=== PATIENT | female | born 1995 | race Caucasian/White ===

== ENCOUNTER 2023-06-07 16:16 | Emergency (ER) | payer OTHER, SELFPAY ==
[2023-06-07 16:28] VITALS: BP 181/118; BP 194/106; PULSE 103; PULSE 104; RESP 16; TEMP 36.4; O2SAT 96; O2SAT 98; BMI 44.8
[2023-06-07 16:35] LABS: Glucose, Whole Blood 172 mg/dL (60-115)
--- NOTE | 2023-06-07 16:49 | ED_ITS ---
HPI - General Adult General Chief complaint: Nausea/Vomiting/Diarrhea Stated complaint: VOMITING SINCE 6 AM,HTN,DIABETIC Time Seen by Provider: 06/07/23 16:35 Source: patient, RN notes reviewed and old records reviewed Mode of arrival: ambulatory Limitations: no limitations History of Present Illness HPI narrative: 27-year-old female with past medical history significant for diabetes, hypertension presents for evaluation of vomiting. She reports that his symptoms started this morning. Denies any sick contacts. She also endorses a headache with history of headache She received IV fluids and 4 mg Zofran via EMS EN route Denies any fevers, chills Denies any cough, shortness of breath, sore throat Denies any history abdominal surgeries Reports on Monday, 2 days ago she restarted Trulicity She has been on this medication the past without any issues She reports mild abdominal discomfort which she relates to her vomiting as this started after the nausea and vomiting, no severe or sharp localized abdominal pain Related Data Previous Rx's Medication Instructions Recorded ondansetron 4 mg disintegrating 4 mg PO Q8H PRN nausea and 06/07/23 tablet vomiting #20 tabs Allergies Allergy/AdvReac Type Severity Reaction Status Date / Time clonazepam [From Klonopin] AdvReac Anaphylaxis Verified 06/07/23 16:35 Review of Systems 2 Constitutional: Constitutional: Denies body ache(s), Denies chills, Denies fever(s) and Reports headache(s) Eyes: Eyes: Denies blurry vision ENT: Reports headache(s) Cardiovascular: Cardiovascular: Denies chest pain and Denies dyspnea Respiratory: Respiratory: Denies cough and Denies dyspnea Gastrointestinal: Gastrointestinal: Reports abdominal pain, Reports nausea and Reports vomiting Musculoskeletal: Musculoskeletal: Denies back pain Integumentary/Breasts: Skin/Breast: Denies rash Neurologic: Reports headache(s) PMF Social History Social History Smoked in Last 30 Days: Yes Use of substances other than those prescribed or required for medical reasons: No Advance Directives: No Advance Directives Information Provided: No Patient : No Physical Exam ED Vital Signs: Vital Signs - 24 hr 06/07/23 16:28 06/07/23 18:27 06/07/23 20:13 Temperature 97.6 F 98.7 F Pulse Rate 104 H 102 H 98 Respiratory Rate 16 18 12 Blood Pressure 194/106 H 155/91 H 157/88 H Pulse Oximetry 96 97 97 Oxygen Delivery Method Room Air Room Air Room Air BMI result Body Mass Index 44.8 Const General: healthy appearing, comfortable, no acute distress, alert and awake Nutritional Appearance: well nourished Orientation/consciousness: patient oriented x3 HENMT Head: Yes normocephalic and Yes atraumatic Eyes Eyelids: Yes eyelids normal Conjunctivae: conjunctivae normal Sclerae: sclerae normal Corneas: corneas normal Pupils: Equal, round and reactive pupils present EOM: EOMs intact bilaterally Neck Neck: Yes full ROM Resp Effort & Inspection: normal respiratory effort, able to speak in complete sentences and not labored GI Inspection: No distended Palpation (GI): Soft to palpation, not firm, nontender, no guarding and not rigid Skin General skin exam: elasticity normal Neuro General: patient oriented x3 Cranial nerves: Yes Equal, round and reactive pupils present and Yes Bilaterally intact EOM present Cognition (Neuro): normal cognition Extrem Other: Moving all extremities well without any obvious deformities Course Reevaluation(s) Reevaluation #1: Patient reports feeling much better, she passed a p.o. challenge and requested more fluid without any vomiting. She is stable for discharge at this time. Time: 20:14 Medications Administered Discontinued Medications Generic Name Dose Route Start Last Admin Trade Name Freq PRN Reason Stop Dose Admin Diphenhydramine HCl 12.5 mg 06/07/23 16:45 06/07/23 16:57 Diphenhydramine Hcl 50 Mg/Ml Vial IVPUSH 06/07/23 16:46 12.5 mg ONCE ONE Administration Sodium Chloride 1,000 mls @ 999 mls/hr 06/07/23 16:45 06/07/23 18:25 Ns IV 06/07/23 17:45 Infused .Q1H1M [facility] Infusion Ketorolac Tromethamine 15 mg 06/07/23 16:45 06/07/23 16:57 Ketorolac Tromethamine 15 Mg/Ml Vial IVPUSH 06/07/23 16:46 15 mg ONCE ONE Administration Metoclopramide HCl 10 mg 06/07/23 16:45 06/07/23 16:57 Metoclopramide Hcl 10 Mg/2 Ml Vial IVPUSH 06/07/23 16:46 10 mg ONCE ONE Administration Medical Decision Making Medical Decision Making MDM Narrative: 27-year-old female presents for evaluation of vomiting, headache. Possibly viral related, will check flu swab, she is noted be hypertensive. Will treat her discomfort with Toradol, Benadryl, Reglan and IV fluids. She reports that she is currently on a med to cycle so less likely will start ordered an HCG. Labs pending. The patient has no abdominal tenderness on exam. Further workup as indicated Differential Diagnosis Differential Diagnoses: The differential diagnosis associated with the presentation includes Viral syndrome Gastroenteritis Influenza RSV COVID-19 Pancreatitis Peptic ulcer disease Acute headache Lab Data MDM Lab Attestation statement: I reviewed the patient's lab results. No leukocytosis or anemia. No electrolyte abnormalities. Renal function within normal limits. Patient's glucose elevated to 175 without evidence of DKA. She has a very mild transaminitis of uncertain etiology possibly viral. Lipase just above normal at 105 but she has no epigastric abdominal pain currently. No tenderness on exam. Her bilirubin is within normal limits, less likely biliary obstruction 06/07/23 17:40 06/07/23 17:40 Labs: Lab Results 06/07/23 06/07/23 Range/Units 16:29 17:40 WBC 10.1 (4.8-10.8) X10*3/uL RBC 4.73 (4.20-5.50) X10*6/uL Hgb 14.3 (12.0-16.0) g/dl Hct 41.6 (37.0-47.0) % MCV 87.9 (80.0-98.0) fL MCH 30.2 (27.0-33.0) pg MCHC 34.4 (31.0-35.0) g/dl RDW 11.9 (11.0-16.0) % Plt Count 286 (160-400) X10*3/uL MPV 11.3 (9.4-12.3) fL Immature Gran % (Auto) 1.2 H (0.0-0.4) % Neut % (Auto) 62.6 (45-73) % Lymph % (Auto) 27.2 (20-40) % [place] % (Auto) 5.1 (2-11) % Eos % (Auto) 3.5 (0-4) % Baso % (Auto) 0.4 (0-2) % Lymph # (Auto) 2.8 (1.2-4.9) X10*3/uL [place] # (Auto) 0.5 (0.1-1.2) X10*3/uL Eos # (Auto) 0.4 (0.0-0.4) X10*3/uL Baso # (Auto) 0.0 (0.0-0.2) X10*3/uL Abs Immat Gran (auto) 0.12 H (0.00-0.03) X10*3/uL Absolute Neuts (auto) 6.4 (2.0-8.3) x10*3/uL Absolute Nucleated RBC 0.000 (0.0-0.012) X10*3/uL Nucleated RBC % (auto) 0.0 (0.0-0.2) /100WBC Sodium 138 (135-145) mmol/L Potassium 3.9 (3.3-5.1) mmol/L Chloride 106 (96-108) mmol/L Carbon Dioxide 25 (22-29) mmol/L Anion Gap 11 L (12-20) BUN 9 (9-16) mg/dL Creatinine 0.61 (0.5-1.4) mg/dL Estim Creat Clear Calc 199.1 Estimated GFR > 60 POC Glucose 172 H (60-115) mg/dL Random Glucose 175 H (60-115) mg/dL Calcium 9.3 (8.4-10.2) mg/dL Total Bilirubin 0.7 (0.0-1.0) mg/dL AST 74 H (5-31) U/L ALT 74 H (0-31) U/L Alkaline Phosphatase 58 (39-117) U/L Total Protein 7.7 (6.5-8.0) g/dL Albumin 3.8 (3.5-5.0) g/dL Lipase 105 H (8-78) U/L Influenza Type A (PCR) NEGATIVE (Negative) Influenza Type B (PCR) NEGATIVE (Negative) RSV RNA Qual (PCR) NEGATIVE (Negative) SARS-CoV-2 RNA (RT-PCR) NEGATIVE (Negative) Discharge Plan Discharge Clinical Impression: Abdominal pain, Vomiting Patient Disposition: Home, Self-Care Instructions: Acute Nausea and Vomiting (ED) Additional Instructions: Your workup in the emergency department today was reassuring. Your liver enzymes were slightly elevated today. This could be related to a stomach virus I do recommend you have repeat labs in approximately 2 weeks with your primary doctor Use Zofran for nausea/vomiting Return for new or worsening some Prescriptions: New ondansetron 4 mg tablet,disintegrating 4 mg PO Q8H PRN (Reason: nausea and vomiting) Qty: 20 0RF
[2023-06-07] MEDS: 0.9 % Sodium Chloride 1,000 ML 999 ML IV (16:57)
[2023-06-07] MEDS: diphenhydrAMINE HCL 50 MG/ML VIAL 12.5 MG IVPUSH (16:57)
[2023-06-07] MEDS: Ketorolac Tromethamine 15 MG/ML VIAL IVPUSH (16:57)
[2023-06-07] MEDS: Metoclopramide HCl 10 MG/2 ML VIAL IVPUSH (16:57)
[2023-06-07 17:52] LABS: MANUAL DIFF FLAG NO
[2023-06-07 18:13] LABS: Alanine Aminotransferase 74 U/L (0-31); Albumin Level 3.8 g/dL (3.5-5.0); Alkaline Phosphatase 58 U/L (39-117); Anion Gap 11 (12-20); Aspartate Amino Transferase 74 U/L (5-31); Bilirubin Total 0.7 mg/dL (0.0-1.0); Blood Urea Nitrogen 9 mg/dL (9-16); Calcium 9.3 mg/dL (8.4-10.2); Carbon Dioxide 25 mmol/L (22-29); Chloride 106 mmol/L (96-108); Creatinine Clr Calc Pharmacy 199.1; Estimated Glomerular Filt Rate > 60; Glucose Random 175 mg/dL (60-115); Lipase 105 U/L (8-78); Potassium 3.9 mmol/L (3.3-5.1); Sodium 138 mmol/L (135-145); Total Protein 7.7 g/dL (6.5-8.0)
[2023-06-07 18:14] LABS: Basophils Percent Auto 0.4 % (0-2); Eosinophils Absolute Auto 0.4 X10*3/uL (0.0-0.4); Eosinophils Percent Auto 3.5 % (0-4); Hematocrit 41.6 % (37.0-47.0); Hemoglobin 14.3 g/dl (12.0-16.0); Imm Gran Abs Auto 0.12 X10*3/uL (0.00-0.03); Imm Gran Pct Auto 1.2 % (0.0-0.4); Lymphocytes Absolute Auto 2.8 X10*3/uL (1.2-4.9); Lymphocytes Percent Auto 27.2 % (20-40); Mean Corpuscular HGB Conc 34.4 g/dl (31.0-35.0); Mean Corpuscular Hemoglobin 30.2 pg (27.0-33.0); Mean Corpuscular Volume 87.9 fL (80.0-98.0); Mean Platelet Volume 11.3 fL (9.4-12.3); Monocytes Absolute Auto 0.5 X10*3/uL (0.1-1.2); Monocytes Percent Auto 5.1 % (2-11); Neutrophils Absolute Auto 6.4 x10*3/uL (2.0-8.3); Neutrophils Percent Auto 62.6 % (45-73); Platelet Count 286 X10*3/uL (160-400); Red Blood Count 4.73 X10*6/uL (4.20-5.50); Red Cell Distribution Width 11.9 % (11.0-16.0); White Blood Count 10.1 X10*3/uL (4.8-10.8)
[2023-06-07 18:27] VITALS: BP 155/91; PULSE 102; RESP 18; O2SAT 97
[2023-06-07 18:34] LABS: Influenza A PCR NEGATIVE (Negative); Influenza B PCR NEGATIVE (Negative); Resp Syncy Virus RNA Qual PCR NEGATIVE (Negative); SARS COV2 PCR INHOUSE NEGATIVE (Negative)
[2023-06-07 20:13] VITALS: BP 157/88; PULSE 98; RESP 12; TEMP 37.1; O2SAT 97
--- NOTE | 2023-06-07 20:14 | PC.NURSE ---
Pt aox4 resting at the bedside. Food and water provided. Pt able to tolerate with no N/V. Reports headache, 3/10. MLP at bedside.
== END 2023-06-07 20:29 | disposition home or self-care (01) ==
PROVIDERS: Physician Assistant; Emergency Provider Student in an Organized Health Care Education/Training Program; PCP Internal Medicine
DX: R11.2 Nausea with vomiting, unspecified (principal); R51.9 Headache, unspecified; E11.9 Type 2 diabetes mellitus without complications; I10 Essential (primary) hypertension; Z79.899 Other long term (current) drug therapy; Z20.822 Contact with and (suspected) exposure to COVID-19; Z20.828 Contact with and (suspected) exposure to other viral communicable diseases; Z79.4 Long term (current) use of insulin
CPT/HCPCS: 0241U; 80053; 82947; 83690; 85025; 96361; 96374; 96375; 99284; 99285; J1200; J1885; J2765

== ENCOUNTER 2023-11-28 16:20 | Emergency (ER) | payer OTHER, SELFPAY ==
[2023-11-28 16:34] VITALS: BP 186/110; PULSE 90; O2SAT 98
[2023-11-28 17:40] VITALS: BP 179/103; PULSE 89; RESP 18; TEMP 36.7; O2SAT 98; BMI 44.2
--- NOTE | 2023-11-28 17:43 | ED.GENADULT ---
HPI - General Adult General Chief complaint: Abdominal Pain Stated complaint: Upper ABD pain, burning sensation, slight tenderne Related Data Previous Rx's ?Medication ?Instructions ?Recorded ondansetron 4 mg disintegrating 4 mg PO Q8H PRN nausea and 06/07/23 tablet vomiting #20 tabs Allergies Allergy/AdvReac Type Severity Reaction Status Date / Time clonazepam [From Klonopin] AdvReac Anaphylaxis Verified 11/28/23 17:43 [facility] Social History Social History Advance Directives: No Advance Directives Information Provided: No Do you have a plan to hurt others: No Plan Physical Exam ED Vital Signs: BMI result Body Mass Index 44.2 Course Course Course Narrative: This is a Rapid Medical Examination (RME) performed by Salena Christopher PA-C in triage. Full HPI, ROS, assessment and treatment plan per primary provider in the Main ED. 28 yo female hx of GERD here for eval of constant epigastric abdominal pain radiating to RUQ along with nausea X1 day. reports nausea before onset of abdominal pain. Reports multiple episodes of diarrhea since yesterday. History of . No other abdominal surgeries. Admits to possible chance of . Patient hypertensive in triage. she takes labetolol BID. took her first dose this morning. obese abdomen, ND. slightly TTP of epigastric region. negative lopez sign. Plan: labs, UA, u preg ordered. Reevaluation(s) Reevaluation #1: Patient left the ED without completing treatment. Medical Decision Making Lab Data 11/28/23 18:01 11/28/23 18:01 Labs: Lab Results 11/28/23 11/28/23 Range/Units 18:01 18:02 WBC 11.7 H (4.8-10.8) X10*3/uL RBC 4.75 (4.20-5.50) X10*6/uL Hgb 14.5 (12.0-16.0) g/dl Hct 41.1 (37.0-47.0) % MCV 86.5 (80.0-98.0) fL MCH 30.5 (27.0-33.0) pg MCHC 35.3 H (31.0-35.0) g/dl RDW 12.0 (11.0-16.0) % Plt Count 280 (160-400) X10*3/uL MPV 11.0 (9.4-12.3) fL Immature Gran % (Auto) 0.3 (0.0-0.4) % Neut % (Auto) 52.6 (45-73) % Lymph % (Auto) 38.2 (20-40) % [place] % (Auto) 4.9 (2-11) % Eos % (Auto) 3.4 (0-4) % Baso % (Auto) 0.6 (0-2) % Lymph # (Auto) 4.5 (1.2-4.9) X10*3/uL [place] # (Auto) 0.6 (0.1-1.2) X10*3/uL Eos # (Auto) 0.4 (0.0-0.4) X10*3/uL Baso # (Auto) 0.1 (0.0-0.2) X10*3/uL Abs Immat Gran (auto) 0.04 H (0.00-0.03) X10*3/uL Absolute Neuts (auto) 6.1 (2.0-8.3) x10*3/uL Absolute Nucleated RBC 0.000 (0.0-0.012) X10*3/uL Nucleated RBC % (auto) 0.0 (0.0-0.2) /100WBC Sodium 140 (135-145) mmol/L Potassium 3.9 (3.3-5.1) mmol/L Chloride 106 (96-108) mmol/L Carbon Dioxide 26 (22-29) mmol/L Anion Gap 12 (12-20) BUN 9 (9-16) mg/dL Creatinine 0.66 (0.5-1.4) mg/dL Estim Creat Clear Calc 180.9 Estimated GFR > 60 Random Glucose 130 H (60-115) mg/dL Calcium 9.7 (8.4-10.2) mg/dL Magnesium 1.8 (1.6-2.6) mg/dL Total Bilirubin 0.5 (0.0-1.0) mg/dL AST 43 H (5-31) U/L ALT 58 H (0-31) U/L Alkaline Phosphatase 58 (39-117) U/L Total Protein 7.8 (6.5-8.0) g/dL Albumin 4.1 (3.5-5.0) g/dL Lipase 24 (8-78) U/L Urine Color Yellow Urine Appearance Clear Urine pH 5.5 (5.0-9.0) Ur Specific [place] 1.010 (1.005-1.025) Urine Protein 100 (2+) H (Neg-Trace) mg/dL Urine Glucose (UA) Negative (Negative) mg/dL Urine Ketones Negative (Negative) mg/dL Urine Blood Negative (Negative) Urine Nitrite Negative (Negative) Ur Leukocyte Esterase Negative (Negative) Urine RBC 0-2 (0-2) /HPF Urine WBC 0-5 (0-5) /HPF Ur Squamous Epith Cells 6-10 (0-2) /HPF Urine Bacteria None Seen (None Seen) Hyaline Casts 0-2 (0-2) /LPF Urine Test NEGATIVE (NEGATIVE) Influenza Type A (PCR) NEGATIVE (Negative) Influenza Type B (PCR) NEGATIVE (Negative) RSV RNA Qual (PCR) NEGATIVE (Negative) SARS-CoV-2 RNA (RT-PCR) NEGATIVE (Negative) Discharge Plan Discharge Clinical Impression: Abdominal pain Patient Disposition: Left W/O Completing Treatment Prescriptions: No Action ondansetron 4 mg tablet,disintegrating 4 mg PO Q8H PRN (Reason: nausea and vomiting) Qty: 20 0RF Discharge Date/Time: 11/28/23 22:07
[2023-11-28 18:08] LABS: MANUAL DIFF FLAG NO
[2023-11-28 18:15] LABS: Appearance Urine Clear; Color Urine Yellow; Glucose Urine UA Negative (Negative); Leukocyte Esterase Urine Negative (Negative); Nitrite Urine Negative (Negative); PH 5.5 (5.0-9.0); UMIC TRIGGER UACC YES; Urine Blood Negative (Negative); Urine Ketones Negative (Negative); Urine Protein 100 (2+) mg/dL (Neg-Trace)
[2023-11-28 18:18] LABS: UPreg QC Valid YES; Urine Pregnancy NEGATIVE (NEGATIVE)
[2023-11-28 18:20] LABS: Bacteria Urine None Seen (None Seen); Hyaline Casts Urine 0-2 /LPF (0-2); RBC Urine 0-2 /HPF (0-2); WBC Urine 0-5 /HPF (0-5)
[2023-11-28 18:23] LABS: Alanine Aminotransferase 58 U/L (0-31); Albumin Level 4.1 g/dL (3.5-5.0); Alkaline Phosphatase 58 U/L (39-117); Anion Gap 12 (12-20); Aspartate Amino Transferase 43 U/L (5-31); Basophils Absolute Auto 0.1 X10*3/uL (0.0-0.2); Basophils Percent Auto 0.6 % (0-2); Bilirubin Total 0.5 mg/dL (0.0-1.0); Blood Urea Nitrogen 9 mg/dL (9-16); Calcium 9.7 mg/dL (8.4-10.2); Carbon Dioxide 26 mmol/L (22-29); Chloride 106 mmol/L (96-108); Creatinine Clr Calc Pharmacy 180.9; Eosinophils Absolute Auto 0.4 X10*3/uL (0.0-0.4); Eosinophils Percent Auto 3.4 % (0-4); Estimated Glomerular Filt Rate > 60; Glucose Random 130 mg/dL (60-115); Hematocrit 41.1 % (37.0-47.0); Hemoglobin 14.5 g/dl (12.0-16.0); Imm Gran Abs Auto 0.04 X10*3/uL (0.00-0.03); Imm Gran Pct Auto 0.3 % (0.0-0.4); Lipase 24 U/L (8-78); Lymphocytes Absolute Auto 4.5 X10*3/uL (1.2-4.9); Lymphocytes Percent Auto 38.2 % (20-40); Magnesium 1.8 mg/dL (1.6-2.6); Mean Corpuscular HGB Conc 35.3 g/dl (31.0-35.0); Mean Corpuscular Hemoglobin 30.5 pg (27.0-33.0); Mean Corpuscular Volume 86.5 fL (80.0-98.0); Monocytes Absolute Auto 0.6 X10*3/uL (0.1-1.2); Monocytes Percent Auto 4.9 % (2-11); Neutrophils Absolute Auto 6.1 x10*3/uL (2.0-8.3); Neutrophils Percent Auto 52.6 % (45-73); Platelet Count 280 X10*3/uL (160-400); Potassium 3.9 mmol/L (3.3-5.1); Red Blood Count 4.75 X10*6/uL (4.20-5.50); Sodium 140 mmol/L (135-145); Total Protein 7.8 g/dL (6.5-8.0); White Blood Count 11.7 X10*3/uL (4.8-10.8)
[2023-11-28 18:57] LABS: Influenza A PCR NEGATIVE (Negative); Influenza B PCR NEGATIVE (Negative); Resp Syncy Virus RNA Qual PCR NEGATIVE (Negative); SARS COV2 PCR INHOUSE NEGATIVE (Negative)
--- NOTE | 2023-11-28 22:07 | PC.NURSE ---
per chrt comment, pt left at [phone]
== END 2023-11-28 22:07 | disposition left against medical advice (07) ==
PROVIDERS: Physician Assistant Medical; Emergency Provider Emergency Medicine; PCP Internal Medicine
DX: R10.10 Upper abdominal pain, unspecified (principal); Z03.818 Encounter for observation for suspected exposure to other biological agents ruled out; Z79.899 Other long term (current) drug therapy
CPT/HCPCS: 0241U; 36415; 80053; 81001; 81025; 83690; 83735; 85025; 99282; 99283

== ENCOUNTER 2024-01-08 20:39 | Emergency (ER) | payer OTHER, SELFPAY ==
--- NOTE | ~2024-01-08 | US_ITS ---
EXAMINATION: US PELVIS CLINICAL INFORMATION: Heavy menstrual bleeding and pain. COMPARISON: None available. TECHNIQUE: Ultrasound of the pelvis is performed using both transabdominal and transvaginal transducers along with Doppler. Transvaginal imaging is performed due to inadequate visualization transabdominally. FINDINGS: Uterus: The uterus is anteverted and measures 8.9 x 4.1 x 4.4 cm. The double wall endometrial thickness is 8 mm. The uterus is smooth in contour and has normal myometrial echogenicity. No visible fibroid. Nabothian cysts at the cervix. Adnexa: Both ovaries are visualized. There is normal color flow to the adnexa. There is no ovarian torsion. There is no pelvic ascites or fluid collection. Right ovary measures 3.3 x 2 x 2.1 cm. 7.3 mL Left ovary measures 3.7 x 2.6 x 2.1 cm. 10.6 mL US/US pelvic and transvaginal IMPRESSION: Normal ultrasound of pelvis.
[2024-01-08 20:44] VITALS: BP 180/100; PULSE 118; O2SAT 98
[2024-01-08 20:45] VITALS: BP 209/121; PULSE 100; RESP 18; TEMP 37.1; O2SAT 98; BMI 43.0
--- NOTE | 2024-01-08 20:45 | ED.ABDPAIN ---
HPI - Abdominal Pain General Chief Complaint: General Medical Stated Complaint: abd pain with menstruation, cramps and burning Time Seen by Provider: 01/08/24 21:14 Source: patient and EMS Mode of arrival: EMS Limitations: no limitations History of Present Illness HPI narrative: Patient is a 28-year-old female presents to the emergency department for evaluation of heavy menstrual bleeding. She states that she began having vaginal bleeding yesterday evening. As today has progressed she has been soaking through 1 pad per hour reportedly passing large clots. She states her menses have not typically been this heavy in the past. She admits to having lower abdominal cramping/pain. She has been experiencing dysuria and urinary frequency. She states that she was also having some mild itching of the vaginal region recently which she typically experiences with a yeast infection. She reports she is unaware whether she may be or not, last menstrual period was approximately 2 months ago, states it is typical for her menses to be irregular. She also had a single episode of vomiting earlier today, which she states is not atypical during her menses. Additionally, she admits to having some shortness of breath, she states she was treated in an emergency department in [place] yesterday for an asthma exacerbation, she was given prednisone 60 mg orally. She is requesting her albuterol inhaler at this time. Related Data Previous Rx's ?Medication ?Instructions ?Recorded ondansetron 4 mg disintegrating 4 mg PO Q8H PRN nausea and 06/07/23 tablet vomiting #20 tabs cefuroxime axetil 250 mg tablet 250 mg PO BID #13 tabs 01/09/24 Allergies Allergy/AdvReac Type Severity Reaction Status Date / Time clonazepam [From Klonopin] AdvReac Anaphylaxis Verified 01/08/24 20:49 Review of Systems Review of Systems Yes all other systems are reviewed and are negative PMFSH Past Medical History Attestation statement: The following information was validated with the patient. Source: old records reviewed Social History Social History Smoked in Last 30 Days: Yes Use of substances other than those prescribed or required for medical reasons: No Advance Directives: No Advance Directives Information Provided: No Do you have a plan to hurt others: No Plan Physical Exam ED Vital Signs: Vital Signs - 24 hr 01/08/24 20:45 01/08/24 23:07 01/09/24 00:04 Temperature 98.8 F 98.5 F Pulse Rate 100 98 105 H Respiratory Rate 18 20 18 Blood Pressure 209/121 H 200/109 H 181/108 H Pulse Oximetry 98 93 95 Oxygen Delivery Method Room Air Room Air Room Air 01/09/24 00:16 Temperature 98.9 F Pulse Rate 105 H Respiratory Rate 18 Blood Pressure 181/108 H Pulse Oximetry 95 Oxygen Delivery Method Room Air BMI result Body Mass Index 43.0 Appearance: Alert.?Oriented to person, place and time. No acute distress.?Normal affect. Eyes: Pupils equal, round and reactive to light.? ENT: Pharynx normal.?? Neck: Normal inspection.? Neck supple.?? CVS: Heart sounds normal. Normal heart rate and rhythm.? Pulses normal.?? Respiratory: No respiratory distress.? Lung sounds clear to auscultation bilaterally?? Abdomen: Soft and non-tender. Normoactive bowel sounds. No pulsatile mass.?? Genitourinary:? Supervised by ED infectious disease technician Ivory. Normal external appearance of urethra.? No lesions/lacerations or discharge or tenderness noted. No Bartholin cyst noted.? Speculum exam: normal appearance/palpation of vagina normal. No abnormal vaginal discharge, swelling, erythema, laceratons. Positive bleeding in the vaginal vault without clots. ?No foreign bodies noted.? No vaginal tenderness noted.? Normal appearance of cervix. Normal palpation of cervix.? Cervical os is closed.? Active bleeding from the cervical os is noted noted.? No cervical lesion/mass.?? No cervical motion tenderness noted.? Negative chandelier sign.? Normal bimanual exam.? Uterine size normal. Uterine consistency normal.? Bladder normal to palpation. Normal adnexa. Normal rectovaginal exam. Skin: Skin warm and dry.? Normal skin color.? Extremities: No lower extremity edema.? Neuro: Moves all extremities spontaneously. Sensation intact bilaterally. Ambulates with normal steady gait. Course Course Course Narrative: This is an RME: Additional HPI, ROS, PE not included below will be deferred to primary provider. RME assessment and note performed by: Amada Nathan PA-C This is a [id number]-female who presents to the ER with a complaints of abnormal uterine bleeding since yesterday. Reports she is soaking through 1 pad per hour. Reports that she is passing blood clots, never had a menses as heavy or painful before. Unsure of . HX of abnormal menses in the past > did not have menses last month which is typical of her. She has nausea, and vomiting once. Endorsing some dizziness. Plan: Labs, UA, EKG Medical Decision Making Medical Decision Making [facility] Narrative: Patient is a 28-year-old female with past medical history hypertension, diabetes, asthma who presents emergency department for evaluation of heavy menstrual bleeding as per HPI. Overall she appears well, no distress, ambulatory with a steady gait. Her abdominal examination is benign, has no tenderness upon palpation no rigidity or guarding, no rebound tenderness. No flank tenderness. Examination appears less consistent with PID. She denies concern for sexually transmitted infections, would not consider prophylactic treatment at this time. Urinalysis reveals hematuria, positive nitrites, 1+ urine bacteria. She is symptomatic with dysuria and urinary frequency, would treat as urinary tract infection at this time, although we did discuss that menstrual bleeding can sometimes skew these results. She was given her first dose of Ceftin in the emergency department remainder prescription was sent to her pharmacy. HCG is negative. Testing for bacterial vaginosis panel in addition to chlamydia and gonorrhea were sent to the pharmacy. Pelvic ultrasound was without acute abnormality. Her blood counts are stable, no anemia, electrolytes overall unremarkable, no MIRANDA, LFTs overall unremarkable. She is also noted to have asymptomatic hypertension, which upon review of her records has been seen in the past as well, she admits to compliance with her antihypertensives. States it has been sometime since she followed up with her primary care doctor for evaluation of this. She denies chest pain, shortness of breath, dizziness, lightheadedness, vision changes, neck pain, numbness or tingling of her extremities. Differential Diagnosis Differential Diagnoses: The differential diagnosis associated with the presentation includes (See narrative above) Admission/Observation Consideration of admission/observation: Escalation of care including admission/observation considered (See narrative above) Lab Data [facility] Lab Attestation statement: I reviewed the patient's lab results. (See narrative above) 01/08/24 21:12 01/08/24 21:12 Labs: Lab Results 01/08/24 01/08/24 Range/Units 21:12 21:26 WBC 12.5 H (4.8-10.8) X10*3/uL RBC 4.36 (4.20-5.50) X10*6/uL Hgb 13.2 (12.0-16.0) g/dl Hct 38.1 (37.0-47.0) % MCV 87.4 (80.0-98.0) fL MCH 30.3 (27.0-33.0) pg MCHC 34.6 (31.0-35.0) g/dl RDW 12.4 (11.0-16.0) % Plt Count 338 (160-400) X10*3/uL MPV 10.2 (9.4-12.3) fL Immature Gran % (Auto) 0.4 (0.0-0.4) % Neut % (Auto) 58.0 (45-73) % Lymph % (Auto) 33.9 (20-40) % [place] % (Auto) 5.8 (2-11) % Eos % (Auto) 1.5 (0-4) % Baso % (Auto) 0.4 (0-2) % Lymph # (Auto) 4.2 (1.2-4.9) X10*3/uL [place] # (Auto) 0.7 (0.1-1.2) X10*3/uL Eos # (Auto) 0.2 (0.0-0.4) X10*3/uL Baso # (Auto) 0.1 (0.0-0.2) X10*3/uL Abs Immat Gran (auto) 0.05 H (0.00-0.03) X10*3/uL Absolute Neuts (auto) 7.2 (2.0-8.3) x10*3/uL Absolute Nucleated RBC 0.000 (0.0-0.012) X10*3/uL Nucleated RBC % (auto) 0.0 (0.0-0.2) /100WBC Sodium 139 (135-145) mmol/L Potassium 3.4 (3.3-5.1) mmol/L Chloride 109 H (96-108) mmol/L Carbon Dioxide 22 (22-29) mmol/L Anion Gap 11 L (12-20) BUN 11 (9-16) mg/dL Creatinine 0.78 (0.5-1.4) mg/dL Estim Creat Clear Calc 150.6 Estimated GFR > 60 Random Glucose 148 H (60-115) mg/dL Calcium 9.4 (8.4-10.2) mg/dL Magnesium 2.0 (1.6-2.6) mg/dL Total Bilirubin 0.4 (0.0-1.0) mg/dL Direct Bilirubin 0.1 (0.0-0.5) mg/dL AST 23 (5-31) U/L ALT 38 H (0-31) U/L Alkaline Phosphatase 57 (39-117) U/L Total Protein 7.6 (6.5-8.0) g/dL Albumin 4.1 (3.5-5.0) g/dL Lipase 26 (8-78) U/L Beta HCG, Quant < 2 mIU/mL Urine Color RED Urine Appearance Turbid Urine pH 5.0 (5.0-9.0) Ur Specific [place] 1.025 (1.005-1.025) Urine Protein 300 (3+) H (Neg-Trace) mg/dL Urine Glucose (UA) 100 H (Negative) mg/dL Urine Ketones 15 (Negative) mg/dL Urine Blood Large (3+) H (Negative) Urine Nitrite Positive H (Negative) Ur Leukocyte Esterase Moderate (2+) H (Negative) Urine RBC >20 H (0-2) /HPF Urine WBC 0-5 (0-5) /HPF Ur Squamous Epith Cells 0-2 (0-2) /HPF Urine Bacteria 1+ (None Seen) Hyaline Casts 0-2 (0-2) /LPF Urine Test NEGATIVE (NEGATIVE) Independent Interpretation I performed an independent interpretation of an: EKG Interpretation: Rate: 100 Rhythm:? Normal sinus rhythm Normal P waves.? Normal SHARON.?? Normal QRS complex.?? ST T wave :??No ST elevation, no ST depression qTC:[id number] The study has been interpreted contemporaneously by me. Radiology Impression Discussion of test interpretation with radiology: I have reviewed the radiologist's reading. Radiologist Impression: US/US pelvic and transvaginal IMPRESSION: Normal ultrasound of pelvis. Independent Historian Clinical information obtained from an independent historian. History obtained from or confirmed by: EMS Prescription Management I considered prescription management with: Antibiotic Chronic Conditions Patient?s care impacted by: Diabetes and Hypertension Medications Administered Discontinued Medications Generic Name Dose Route Start Last Admin Trade Name Freq PRN Reason Stop Dose Admin Albuterol Sulfate 2 puff 01/08/24 23:59 01/09/24 00:08 Albuterol Sulfate 90 Mcg 8 Gm Inhaler INHALE 01/09/24 00:00 2 puff ONCE ONE Administration Cefuroxime Axetil 250 mg 01/08/24 23:16 01/09/24 00:06 Cefuroxime Axetil 250 Mg Tablet PO 01/08/24 23:17 250 mg ONCE ONE Administration Ondansetron HCl 4 mg 01/08/24 23:59 01/09/24 00:06 Ondansetron Odt 4 Mg Tab.Rapdis TRANSLINGU 01/09/24 00:00 4 mg ONCE ONE Administration Discharge Plan Discharge Clinical Impression: DUB (dysfunctional uterine bleeding), Urinary tract infection Patient Disposition: Home, Self-Care Instructions: Dysfunctional Uterine Bleeding (ED), Urinary Tract Infection in Women (ED) Additional Instructions: As discussed, continue taking your medications as prescribed. 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 Your blood counts were normal today. The ultrasound of your pelvis was also normal did not show any abnormal findings to suggest a cause for your heavy bleeding. Your urine test today was concerning for a possible infection versus contamination, you reported having burning with urination and urinary frequency, at this time you are being treated for urinary tract infection. If these symptoms continue after her menses subside and you complete the course of antibiotics please follow-up closely with your doctor. You may return back to emergency department any new or worsening symptoms or concerns. Prescriptions: New cefuroxime axetil 250 mg tablet 250 mg PO BID Qty: 13 0RF No Action ondansetron 4 mg tablet,disintegrating 4 mg PO Q8H PRN (Reason: nausea and vomiting) Qty: 20 0RF Referrals: Jamia Berry MD [Primary Care Provider] - Stand Alone Forms: Work/School Release Interventions: ED Discharge Assessment Last Done: 01/09/24 00:16 Discharge Date/Time: 01/09/24 00:16 Print Language: Bengali
--- NOTE | 2024-01-08 20:48 | ECG_ITS ---
Test Reason : DIZINESS Blood Pressure : / mmHG Vent. Rate : 100 BPM Atrial Rate : 100 BPM P-R Int : 152 ms QRS Dur : 106 ms QT Int : 362 ms P-R-T Axes : 044 041 019 degrees QTc Int : 466 ms Normal sinus rhythm Normal ECG No previous ECGs available Referred By: Amada Nathan Electronically Signed By:SAMIRA SANTOS
[2024-01-08 21:18] LABS: MANUAL DIFF FLAG NO
--- NOTE | 2024-01-08 21:18 | PC.NURSE ---
pt a&ox4, respirations even and unlabored and ambulatory. pt reporting onset of lower abdominal cramping and period starting yesterday. pt reports heavy flow; changing 2 large pads every hour, and heavy blood clots. pt reports she is unsure if she is preganant as she is sexually active. pt reports nausea but denies vomiting and diarrhea. 20G placed in left ac, labs obtained and sent. pt ambulatory to bathroom at this time.
[2024-01-08 21:19] LABS: Basophils Absolute Auto 0.1 X10*3/uL (0.0-0.2); Basophils Percent Auto 0.4 % (0-2); Eosinophils Absolute Auto 0.2 X10*3/uL (0.0-0.4); Eosinophils Percent Auto 1.5 % (0-4); Hematocrit 38.1 % (37.0-47.0); Hemoglobin 13.2 g/dl (12.0-16.0); Imm Gran Abs Auto 0.05 X10*3/uL (0.00-0.03); Imm Gran Pct Auto 0.4 % (0.0-0.4); Lymphocytes Absolute Auto 4.2 X10*3/uL (1.2-4.9); Lymphocytes Percent Auto 33.9 % (20-40); Mean Corpuscular HGB Conc 34.6 g/dl (31.0-35.0); Mean Corpuscular Hemoglobin 30.3 pg (27.0-33.0); Mean Corpuscular Volume 87.4 fL (80.0-98.0); Mean Platelet Volume 10.2 fL (9.4-12.3); Monocytes Absolute Auto 0.7 X10*3/uL (0.1-1.2); Monocytes Percent Auto 5.8 % (2-11); Neutrophils Absolute Auto 7.2 x10*3/uL (2.0-8.3); Platelet Count 338 X10*3/uL (160-400); Red Blood Count 4.36 X10*6/uL (4.20-5.50); Red Cell Distribution Width 12.4 % (11.0-16.0); White Blood Count 12.5 X10*3/uL (4.8-10.8)
--- NOTE | 2024-01-08 21:28 | PC.NURSE ---
urine sample obtained and sent to lab, urine appeared bright red at this time.
[2024-01-08 21:36] LABS: Appearance Urine Turbid; Color Urine RED; Glucose Urine UA 100 mg/dL (Negative); Leukocyte Esterase Urine Moderate (2+) (Negative); Nitrite Urine Positive (Negative); Specific Gravity - Urine 1.025 (1.005-1.025); UMIC TRIGGER UACC YES; Urine Blood Large (3+) (Negative); Urine Ketones 15 mg/dL (Negative); Urine Protein 300 (3+) mg/dL (Neg-Trace)
[2024-01-08 21:37] LABS: UPreg QC Valid YES; Urine Pregnancy NEGATIVE (NEGATIVE)
[2024-01-08 21:41] LABS: Alanine Aminotransferase 38 U/L (0-31); Albumin Level 4.1 g/dL (3.5-5.0); Alkaline Phosphatase 57 U/L (39-117); Anion Gap 11 (12-20); Aspartate Amino Transferase 23 U/L (5-31); Bilirubin Direct 0.1 mg/dL (0.0-0.5); Bilirubin Total 0.4 mg/dL (0.0-1.0); Blood Urea Nitrogen 11 mg/dL (9-16); Calcium 9.4 mg/dL (8.4-10.2); Carbon Dioxide 22 mmol/L (22-29); Chloride 109 mmol/L (96-108); Creatinine Clr Calc Pharmacy 150.6; Estimated Glomerular Filt Rate > 60; Glucose Random 148 mg/dL (60-115); Lipase 26 U/L (8-78); Potassium 3.4 mmol/L (3.3-5.1); Sodium 139 mmol/L (135-145); Total Protein 7.6 g/dL (6.5-8.0)
[2024-01-08 21:43] LABS: HCG Quantitative < 2 mIU/mL
[2024-01-08 21:43] LABS: Bacteria Urine 1+ (None Seen); Hyaline Casts Urine 0-2 /LPF (0-2); RBC Urine >20 /HPF (0-2); Squamous Epithelial Cell Urine 0-2 /HPF (0-2); UACC Culture Trigger YES; WBC Urine 0-5 /HPF (0-5)
[2024-01-08 23:07] VITALS: BP 200/109; PULSE 98; RESP 20; TEMP 36.9; O2SAT 93
--- NOTE | 2024-01-08 23:55 | PC.NURSE ---
Milind CALLEJAS at bedside doing pelvic on pt at this time.
[2024-01-09 00:04] VITALS: BP 181/108; PULSE 105; RESP 18; O2SAT 95
[2024-01-09] MEDS: Ondansetron ODT 4 MG TAB.RAPDIS TRANSLINGU (00:06)
[2024-01-09] MEDS: cefuroxime axetiL 250 MG TABLET PO (00:06)
--- NOTE | 2024-01-09 00:06 | PC.NURSE ---
pt medicated per mar, tolerated well with water.
[2024-01-09] MEDS: Albuterol Sulfate 90 MCG 8 GM INHALER 2 PUFF INHALE (00:08)
[2024-01-09 00:16] VITALS: BP 181/108; PULSE 105; RESP 18; TEMP 37.2; O2SAT 95
[2024-01-09 01:39] LABS: CT PCR NOT DETECTED (Not Detect.); NG PCR NOT DETECTED (Not Detect.)
[2024-01-09 09:50] LABS: Bacterial Vaginosis PCR NEGATIVE (Negative); Candida Group PCR NOT DETECTED (Not Detect); Candida glab krusei PCR NOT DETECTED (Not Detect); Trichomonas vaginalis PCR NOT DETECTED (Not Detect)
== END 2024-01-09 00:16 | disposition home or self-care (01) ==
PROVIDERS: Nurse Practitioner Family; Physician Assistant Medical; Emergency Provider Internal Medicine; PCP Internal Medicine
DX: N39.0 Urinary tract infection, site not specified (principal); R10.2 Pelvic and perineal pain; R30.0 Dysuria; N92.0 Excessive and frequent menstruation with regular cycle; R35.0 Frequency of micturition; R42 Dizziness and giddiness; Z79.899 Other long term (current) drug therapy
CPT/HCPCS: 0352U; 36415; 76830; 76856; 80048; 80076; 81001; 81025; 83690; 83735; 84702; 85025; 87086; 87147; 87491; 87591; 93005; 99284

== ENCOUNTER → 2024-01-08 20:48 | Outpatient (BNV) | payer OTHER, SELFPAY | PROVIDERS: Emergency Provider Internal Medicine; PCP Internal Medicine; Visit Provider Internal Medicine | DX: R42 Dizziness and giddiness (principal) | CPT/HCPCS: 93010 ==

== ENCOUNTER 2024-02-17 18:39 | Emergency (ER) | payer OTHER, SELFPAY ==
[2024-02-17 18:43] VITALS: BP 148/86; PULSE 82; O2SAT 98
[2024-02-17 18:47] VITALS: BP 181/110; PULSE 98; RESP 18; TEMP 36.8; O2SAT 97; BMI 29.0
--- NOTE | 2024-02-17 18:51 | ECG_ITS ---
Test Reason : CP Blood Pressure : / mmHG Vent. Rate : 094 BPM Atrial Rate : 094 BPM P-R Int : 152 ms QRS Dur : 102 ms QT Int : 376 ms P-R-T Axes : 045 048 035 degrees QTc Int : 470 ms Normal sinus rhythm Normal ECG When compared with ECG of 08-JAN-2024 21:33, No significant change was found Referred By: Generic ED Physician Electronically Signed By:MEKA LINK
[2024-02-17 19:23] LABS: Basophils Absolute Auto 0.1 X10*3/uL (0.0-0.2); Basophils Percent Auto 0.4 % (0-2); Eosinophils Absolute Auto 0.3 X10*3/uL (0.0-0.4); Eosinophils Percent Auto 2.8 % (0-4); Hematocrit 36.2 % (37.0-47.0); Hemoglobin 12.6 g/dl (12.0-16.0); Imm Gran Abs Auto 0.05 X10*3/uL (0.00-0.03); Imm Gran Pct Auto 0.4 % (0.0-0.4); Lymphocytes Absolute Auto 3.7 X10*3/uL (1.2-4.9); Lymphocytes Percent Auto 32.9 % (20-40); MANUAL DIFF FLAG NO; Mean Corpuscular HGB Conc 34.8 g/dl (31.0-35.0); Mean Corpuscular Hemoglobin 30.3 pg (27.0-33.0); Mean Platelet Volume 10.4 fL (9.4-12.3); Monocytes Absolute Auto 0.7 X10*3/uL (0.1-1.2); Monocytes Percent Auto 5.9 % (2-11); Neutrophils Absolute Auto 6.5 x10*3/uL (2.0-8.3); Neutrophils Percent Auto 57.6 % (45-73); Platelet Count 267 X10*3/uL (160-400); Red Blood Count 4.16 X10*6/uL (4.20-5.50); White Blood Count 11.3 X10*3/uL (4.8-10.8)
[2024-02-17 19:38] LABS: Alanine Aminotransferase 34 U/L (0-31); Albumin Level 3.9 g/dL (3.5-5.0); Alkaline Phosphatase 57 U/L (39-117); Anion Gap 14 (12-20); Aspartate Amino Transferase 28 U/L (5-31); Bilirubin Total 0.5 mg/dL (0.0-1.0); Blood Urea Nitrogen 11 mg/dL (9-16); Calcium 9.6 mg/dL (8.4-10.2); Carbon Dioxide 24 mmol/L (22-29); Chloride 106 mmol/L (96-108); Creatinine Clr Calc Pharmacy 100.5; Estimated Glomerular Filt Rate > 60; Glucose Random 214 mg/dL (60-115); Potassium 4.6 mmol/L (3.3-5.1); Sodium 139 mmol/L (135-145); Total Protein 7.5 g/dL (6.5-8.0)
[2024-02-17 19:49] VITALS: BP 154/73; PULSE 89; RESP 20; O2SAT 98
[2024-02-17 20:00] VITALS: BP 144/86; PULSE 87; RESP 16; TEMP 36.3; O2SAT 98
[2024-02-17 20:13] LABS: Appearance Urine Clear; Color Urine Yellow; Glucose Urine UA 500 mg/dL (Negative); Leukocyte Esterase Urine Negative (Negative); Nitrite Urine Negative (Negative); PH 5.5 (5.0-9.0); UMIC TRIGGER UACC YES; Urine Blood Negative (Negative); Urine Ketones Negative (Negative); Urine Protein 100 (2+) mg/dL (Neg-Trace)
[2024-02-17 20:15] LABS: Bacteria Urine None Seen (None Seen); Hyaline Casts Urine 0-2 /LPF (0-2); RBC Urine 0-2 /HPF (0-2); WBC Urine 0-5 /HPF (0-5)
--- NOTE | 2024-02-17 20:17 | PC.NURSE ---
pt reporting L arm pain that feels like a stabbing pain that comes and goes. c/o neck stiffness in the mornings and then dissipates c/o ulcer/cyst to buttocks/anus, worried it isnt healing/is infected from DM
--- NOTE | 2024-02-17 21:55 | ED_ITS ---
HPI - General Adult General Chief complaint: General Medical Stated complaint: HTN/Headache Time Seen by Provider: 02/17/24 21:05 Source: patient Mode of arrival: ambulatory Limitations: no limitations History of Present Illness ED Provider: daniel SARKAR narrative: Patient's history of hypertension, diabetes noticed slight headache check the blood pressure was 180/110 at 17:30 patient is supposed to take her labetalol at 20:00 came here because blood pressure was elevated although patient complaining of small abscess in the gluteal area which is which are draining no fever no chills patient felt tingling in the left arm going to the left chest no shortness a Related Data Previous Rx's ?Medication ?Instructions ?Recorded ondansetron 4 mg disintegrating 4 mg PO Q8H PRN nausea and 06/07/23 tablet vomiting #20 tabs cefuroxime axetil 250 mg tablet 250 mg PO BID #13 tabs 01/09/24 cephalexin 500 mg capsule 500 mg PO QID 10 days #40 caps 02/17/24 doxycycline hyclate 100 mg tablet 100 mg PO BID #20 tabs 02/17/24 Allergies Allergy/AdvReac Type Severity Reaction Status Date / Time clonazepam [From Klonopin] AdvReac Anaphylaxis Verified 02/17/24 18:49 Review of Systems 2 Review of Systems: Yes all other systems are reviewed and are negative PMFSH Social History Social History Smoked in Last 30 Days: Yes Use of substances other than those prescribed or required for medical reasons: No Advance Directives: No Advance Directives Information Provided: No Patient : No Physical Exam ED Vital Signs: Vital Signs - 24 hr 02/17/24 18:47 02/17/24 19:49 02/17/24 20:00 Temperature 98.2 F 97.4 F Pulse Rate 98 89 87 Respiratory Rate 18 20 16 Blood Pressure 181/110 H 154/73 H 144/86 H Pulse Oximetry 97 98 98 Oxygen Delivery Method Room Air Room Air Room Air BMI result Body Mass Index 29.0 Appearance: Alert. Oriented X3. No acute distress. Eyes: No pallor or ENT: Pharynx normal. Oral Mucosa moist Neck: Normal inspection. Neck supple. CVS: Normal heart rate and rhythm. Pulses normal. Respiratory: No respiratory distress. Equal air entry bilateral, no wheezing/rales/rhonchi Abdomen: Soft and nontender. Bowel sounds are present, no mass palpable, no CVA tenderness Skin: Skin warm and dry. Normal skin color. Normal skin turgor. Small abscess in the right gluteal fold draining small amount of Pus Extremities: No lower extremity edema. No calf tenderness Neuro: Oriented X 3. Medical Decision Making Medical Decision Making [facility] Narrative: Patient has small draining abscess in the gluteal area will prescribe Keflex and doxycycline dose of labetalol labs are stable Differential Diagnosis Differential Diagnoses: The differential diagnosis associated with the presentation includes Lab Data [facility] Lab Attestation statement: I reviewed the patient's lab results. 02/17/24 19:17 02/17/24 19:17 Labs: Lab Results 02/17/24 02/17/24 Range/Units 19:17 20:05 WBC 11.3 H (4.8-10.8) X10*3/uL RBC 4.16 L (4.20-5.50) X10*6/uL Hgb 12.6 (12.0-16.0) g/dl Hct 36.2 L (37.0-47.0) % MCV 87.0 (80.0-98.0) fL MCH 30.3 (27.0-33.0) pg MCHC 34.8 (31.0-35.0) g/dl RDW 12.0 (11.0-16.0) % Plt Count 267 (160-400) X10*3/uL MPV 10.4 (9.4-12.3) fL Immature Gran % (Auto) 0.4 (0.0-0.4) % Neut % (Auto) 57.6 (45-73) % Lymph % (Auto) 32.9 (20-40) % [place] % (Auto) 5.9 (2-11) % Eos % (Auto) 2.8 (0-4) % Baso % (Auto) 0.4 (0-2) % Lymph # (Auto) 3.7 (1.2-4.9) X10*3/uL [place] # (Auto) 0.7 (0.1-1.2) X10*3/uL Eos # (Auto) 0.3 (0.0-0.4) X10*3/uL Baso # (Auto) 0.1 (0.0-0.2) X10*3/uL Abs Immat Gran (auto) 0.05 H (0.00-0.03) X10*3/uL Absolute Neuts (auto) 6.5 (2.0-8.3) x10*3/uL Absolute Nucleated RBC 0.000 (0.0-0.012) X10*3/uL Nucleated RBC % (auto) 0.0 (0.0-0.2) /100WBC Sodium 139 (135-145) mmol/L Potassium 4.6 D (3.3-5.1) mmol/L Chloride 106 (96-108) mmol/L Carbon Dioxide 24 (22-29) mmol/L Anion Gap 14 (12-20) BUN 11 (9-16) mg/dL Creatinine 0.89 (0.5-1.4) mg/dL Estim Creat Clear Calc 100.5 Estimated GFR > 60 Random Glucose 214 H (60-115) mg/dL Calcium 9.6 (8.4-10.2) mg/dL Total Bilirubin 0.5 (0.0-1.0) mg/dL AST 28 (5-31) U/L ALT 34 H (0-31) U/L Alkaline Phosphatase 57 (39-117) U/L Total Protein 7.5 (6.5-8.0) g/dL Albumin 3.9 (3.5-5.0) g/dL Urine Color Yellow Urine Appearance Clear Urine pH 5.5 (5.0-9.0) Ur Specific [place] 1.020 (1.005-1.025) Urine Protein 100 (2+) H (Neg-Trace) mg/dL Urine Glucose (UA) 500 H (Negative) mg/dL Urine Ketones Negative (Negative) mg/dL Urine Blood Negative (Negative) Urine Nitrite Negative (Negative) Ur Leukocyte Esterase Negative (Negative) Urine RBC 0-2 (0-2) /HPF Urine WBC 0-5 (0-5) /HPF Ur Squamous Epith Cells 6-10 (0-2) /HPF Urine Bacteria None Seen (None Seen) Hyaline Casts 0-2 (0-2) /LPF Discharge Plan Discharge Clinical Impression: Hypertension, Abscess Patient Disposition: Home, Self-Care Instructions: Chronic Hypertension (ED), Abscess (ED) Additional Instructions: Take your blood pressure medicine regularly twice a day and check blood pressure before taking the medicine should be less than 140/90 Antibiotic as prescribed for draining abscess Report to the ER if worsening of the abscess size/ redness Prescriptions: New cephalexin 500 mg capsule 500 mg PO QID 10 Days Qty: 40 0RF doxycycline hyclate 100 mg tablet 100 mg PO BID Qty: 20 0RF No Action ondansetron 4 mg tablet,disintegrating 4 mg PO Q8H PRN (Reason: nausea and vomiting) Qty: 20 0RF cefuroxime axetil 250 mg tablet 250 mg PO BID Qty: 13 0RF Print Language: Telugu
[2024-02-17 22:19] VITALS: BP 148/82; PULSE 92; RESP 20; TEMP 36.9; O2SAT 99
[2024-02-17] MEDS: Doxycycline Monohydrate 100 MG CAPSULE PO (22:21)
[2024-02-17] MEDS: Labetalol HCL 100 MG TABLET PO (22:21)
[2024-02-17] MEDS: cephALEXin 500 MG CAPSULE PO (22:21)
[2024-02-17 22:37] VITALS: BP 148/82; PULSE 92; RESP 20; TEMP 36.9; O2SAT 99
== END 2024-02-17 22:38 | disposition home or self-care (01) ==
PROVIDERS: Emergency Provider Internal Medicine; PCP Internal Medicine
DX: R51.9 Headache, unspecified (principal); I10 Essential (primary) hypertension; L02.31 Cutaneous abscess of buttock
CPT/HCPCS: 36415; 80053; 81001; 85025; 93005; 99283; 99284

== ENCOUNTER 2024-02-19 02:55 | Emergency (ER) | payer OTHER, SELFPAY ==
[2024-02-19 03:02] VITALS: BP 183/109; PULSE 100; RESP 18; TEMP 36.8; O2SAT 97; BMI 43.1
--- NOTE | 2024-02-19 03:46 | PC.NURSE ---
Pt ca&ox4, no signs of distress. Pt reports 8/10 ankle, toe, and left sided buttocks pain. Plan of care ongoing.
[2024-02-19 04:00] VITALS: BP 141/79; PULSE 96; RESP 14; TEMP 36.9; O2SAT 98
--- NOTE | 2024-02-19 04:11 | ED.SKABFB ---
HPI - Skin/Abscess/Foreign Bdy General Chief complaint: Skin/Abscess/Foreign Body Stated complaint: abscess/ingrown toe nail Time Seen by Provider: 02/19/24 04:11 Source: patient Mode of arrival: ambulatory Limitations: no limitations History of Present Illness ED Provider: daniel SARKAR narrative: Patient comes here with worsening of the abscess in the right gluteal area and also chronic pain in the right great toe from ingrown nail patient was seen here yesterday and prescribed doxycycline cephalexin but now she says that has a pus discharge coming from the abscess patient does have abscess off and on in the past Related Data Previous Rx's ?Medication ?Instructions ?Recorded ondansetron 4 mg disintegrating 4 mg PO Q8H PRN nausea and 06/07/23 tablet vomiting #20 tabs cefuroxime axetil 250 mg tablet 250 mg PO BID #13 tabs 01/09/24 cephalexin 500 mg capsule 500 mg PO QID 10 days #40 caps 02/17/24 doxycycline hyclate 100 mg tablet 100 mg PO BID #20 tabs 02/17/24 Allergies Allergy/AdvReac Type Severity Reaction Status Date / Time clonazepam [From Klonopin] AdvReac Anaphylaxis Verified 02/19/24 03:03 Review of Systems Review of Systems: Yes all other systems are reviewed and are negative PMFSH Social History Social History Smoked in Last 30 Days: Yes Use of substances other than those prescribed or required for medical reasons: No Advance Directives: No Advance Directives Information Provided: Yes Physical Exam Vital Signs: Vital Signs: Last Vital Signs Temp 98.4 F 02/19/24 04:43 Pulse 96 02/19/24 04:43 Resp 14 02/19/24 04:43 BP 141/79 H 02/19/24 04:43 Pulse Ox 98 02/19/24 04:43 O2 Del Method Room Air 02/19/24 04:43 BMI result Body Mass Index 43.1 Appearance: Alert. Oriented X3. No acute distress. Eyes: PERRLA, No Nystagmus ENT: Pharynx normal. Oral Mucosa moist Neck: Normal inspection. Neck supple. CVS: Normal heart rate and rhythm. Pulses normal. Respiratory: No respiratory distress. Equal air entry bilateral, no wheezing/rales/rhonchi Abdomen: Soft and nontender. Bowel sounds are present, no mass palpable, no CVA tenderness Skin: Skin warm and dry. Normal skin color. Normal skin turgor. Small abscess right gluteal area and tender right great toe no pus discharge Extremities: No lower extremity edema. No calf tenderness Neuro: Oriented X 3. Skin: Full body images: 1. Indurated area in right gluteal with small opening 2. Ingrown toenail without any fluctuance Medications Administered Discontinued Medications Generic Name Dose Route Start Last Admin Trade Name Freq PRN Reason Stop Dose Admin Lidocaine HCl 5 ml 02/19/24 04:15 02/19/24 04:35 Lidocaine Hcl 1 % Mpf 5 Ml Vial INFILTRATI 02/19/24 04:16 5 ml ONCE ONE Administration Procedures Abscess I/D Site: lower extremity (Right gluteal) Side (if applicable): right Local Anesthetic: lidocaine 1% Amount of anesthesia used (mL): 5 Technique: incised with blade Amount of fluid expressed (mL): 2 Sent for culture/gram staining?: No Packing used?: none Discharge Plan Discharge Clinical Impression: Abscess of skin or subcutaneous tissue Patient Disposition: Home, Self-Care Instructions: Abscess Incision and Drainage (DC) Additional Instructions: Local care as advised Continue take your antibiotics as prescribed yesterday Follow with your PCP Prescriptions: No Action ondansetron 4 mg tablet,disintegrating 4 mg PO Q8H PRN (Reason: nausea and vomiting) Qty: 20 0RF cephalexin 500 mg capsule 500 mg PO QID 10 Days Qty: 40 0RF doxycycline hyclate 100 mg tablet 100 mg PO BID Qty: 20 0RF cefuroxime axetil 250 mg tablet 250 mg PO BID Qty: 13 0RF Interventions: ED Discharge Assessment Last Done: 02/19/24 04:43 Discharge Date/Time: 02/19/24 04:45 Print Language: Cymraes
[2024-02-19] MEDS: Lidocaine HCl 1 % MPF 5 ML VIAL INFILTRATI (04:35)
--- NOTE | 2024-02-19 04:39 | PC.NURSE ---
Provider Yomi administered lido Plan of care ongoing.
[2024-02-19 04:43] VITALS: BP 141/79; PULSE 96; RESP 14; TEMP 36.9; O2SAT 98
== END 2024-02-19 04:45 | disposition home or self-care (01) ==
PROVIDERS: Emergency Provider Internal Medicine; PCP Internal Medicine
DX: L02.31 Cutaneous abscess of buttock (principal); M79.674 Pain in right toe(s)
CPT/HCPCS: 10060; 99284

== ENCOUNTER 2024-06-30 22:57 | Emergency (ER) | payer OTHER, SELFPAY ==
--- NOTE | ~2024-06-30 | CT_ITS ---
CLINICAL HISTORY: high BP, IVERSON CT head without contrast Comparison: None Findings: No intra-axial mass, midline shift, hydrocephalus, or acute hemorrhage. No significant atrophy-like change or white matter disease. The visualized paranasal sinuses and mastoid air cells are normal. The orbits are unremarkable. There is no acute fracture. IMPRESSION: 1. No acute intracranial findings This document has been electronically signed by: Geovany Lackey MD, PHD on 07/01/2024 02:40:21
[2024-06-30 23:07] VITALS: BP 171/112; BP 202/110; PULSE 91; PULSE 92; RESP 18; TEMP 36.9; O2SAT 96; O2SAT 98; BMI 44.1
--- NOTE | 2024-07-01 00:13 | ECG_ITS ---
Test Reason : HYPERTENSION Blood Pressure : */* mmHG Vent. Rate : 88 BPM Atrial Rate : 88 BPM P-R Int : 158 ms QRS Dur : 102 ms QT Int : 386 ms P-R-T Axes : 47 50 29 degrees QTcB Int : 467 ms Normal sinus rhythm Normal ECG When compared with ECG of 17-Feb-2024 18:58, No significant change was found Referred By: Rashmi Carlson Electronically Signed By: Valdez Dukes
--- NOTE | 2024-07-01 00:16 | ED.GENADULT ---
HPI - General Adult General Chief complaint: General Medical Stated complaint: IVERSON, HTN, NAUSEA PER EMS Time Seen by Provider: 06/30/24 23:44 Source: patient and EMS Mode of arrival: EMS Limitations: no limitations History of Present Illness ED Provider: Dr. Rashmi Carlson HPI narrative: Patient comes to the emergency room complaining of high blood pressure and headache. Patient states that today in the morning she did not take her blood pressure medications, and then she has been having nausea, headache on the right side of the head. Patient is not sure what started 1st, the blood pressure with a headache. Patient does have history of migraine headaches. Patient states that prior to the ambulance arriving to pick her up, she took 200 mg of her prescribed labetalol. At this time, patient complaining of ongoing headache, no chest pain or shortness of breath. Related Data Previous Rx's ?Medication ?Instructions ?Recorded ondansetron 4 mg disintegrating 4 mg PO Q8H PRN nausea and 06/07/23 tablet vomiting #20 tabs cefuroxime axetil 250 mg tablet 250 mg PO BID #13 tabs 01/09/24 cephalexin 500 mg capsule 500 mg PO QID 10 days #40 caps 02/17/24 doxycycline hyclate 100 mg tablet 100 mg PO BID #20 tabs 02/17/24 lisinopril 40 mg tablet 40 mg PO DAILY #30 tabs 07/01/24 Allergies Allergy/AdvReac Type Severity Reaction Status Date / Time clonazepam [From Klonopin] AdvReac Anaphylaxis Verified 06/30/24 23:11 Review of Systems Review of Systems: Constitutional : No Weight loss, No Fever, No Chills, No Night Sweats, No Fatigue, No Malaise ENT/Mouth : No Hearing loss, No Ear Pain, No Nasal Congestion, No Sinus Pain, No Hoarseness, No sore throat, No Rhinorrhea, No Swallowing Difficulty Eyes: No Eye Pain, No Swelling, No Redness, No Foreign Body, No Discharge, No Vision Changes Cardiovascular : complaining of high blood pressure, No Chest Pain, No SOB, No Dyspnea on Exertion, No Orthopnea, No Edema, No Palpitations Respiratory : No Cough, No Sputum, No Wheezing, No Smoke Exposure, No Dyspnea Gastrointestinal : No Nausea, No Vomiting, No Diarrhea, No Constipation, No abdominal Pain, No Hematochezia, No Melena Genitourinary : no irregular bleeding, No Dysuria, No Urinary Frequency, No Hematuria, No Urinary Incontinence, No Urgency, No Flank Pain, No Urinary Flow Changes, No Hesitancy Musculoskeletal : No joint pain, No Myalgias, No Joint Swelling Skin : No Skin Lesions, No rash Neuro : No Weakness, No Numbness, No Paresthesias, No Loss of Consciousness, No Dizziness, Complaining of headache Psych : No Anxiety/Panic, No Depression, No SI/HI/AH/VH, No Social Issues, Heme/Lymph: No Bruising, No Bleeding,No Lymphadenopathy Endocrine : No Polyuria, No Polydipsia, No Temperature Intolerance [facility] Social History Social History Alcohol intake: current Alcohol intake frequency: holidays/special occasions only Alcohol type: wine Smoked in Last 30 Days: Yes Use of substances other than those prescribed or required for medical reasons: No Advance Directives: No Advance Directives Information Provided: Yes Do you have a plan to hurt others: No Plan Patient : No Physical Exam ED Vital Signs: Vital Signs - 24 hr 06/30/24 23:07 07/01/24 01:01 07/01/24 02:36 Temperature 98.5 F Pulse Rate 91 92 92 Respiratory Rate 18 18 18 Blood Pressure 171/112 H 169/97 H 152/89 H Pulse Oximetry 96 96 98 Oxygen Delivery Method Room Air Room Air Room Air BMI result Body Mass Index 44.1 Const Other: Appearance: Alert. Oriented X3. No acute distress. talking on the phone Eyes: Pupils equal, round and reactive to light. does not have photophobia, patient's seems comfortable with the lights on in the room ENT: Pharynx normal. Neck: Normal inspection. Neck supple. No lymph nodes noted. No crepitus CVS: Normal heart rate and rhythm. Pulses normal. Normal S1 and S2 Respiratory: No respiratory distress. Breath sounds normal. No Wheezing. No rales Abdomen: Soft and nontender. No rigidity. No distention. Skin: Skin warm and dry. Normal skin color. Normal skin turgor. Extremities: No lower extremity edema. No Lacerations. No Rash Neuro: Oriented X 3. No motor deficit. No sensory deficit. Moving all extremities. No slurred speech. CN 2 through 12 grossly intact Psych: calm, cooperative, normal affect Course Course Course Narrative: all of patient's labs pending head CT pending EKG pending Medications Administered Discontinued Medications Generic Name Dose Route Start Last Admin Trade Name Randy PRN Reason Stop Dose Admin Amlodipine Besylate 10 mg 07/01/24 02:16 07/01/24 02:36 Amlodipine Besylate 10 Mg Tablet PO 07/01/24 02:17 10 mg ONCE ONE Administration Protocol Ketorolac Tromethamine 60 mg 07/01/24 02:16 07/01/24 02:36 Ketorolac Tromethamine 60 Mg/2 Ml Vial IM 07/01/24 02:17 60 mg ONCE ONE Administration Medical Decision Making Medical Decision Making [facility] Narrative: my interpretation of CT scan, no acute abnormality my interpretation of labs, at baseline hematology and chemistry, troponin negative, test negative patient received 1 dose of amlodipine, blood pressure now in the 150s. Discussed with the patient that she should keep her current dose of labetalol 100 mg and 200 mg in the evening and we will increase her dose of lisinopril from 20-40 mg patient received a dose of IM ketorolac for headache. Patient states that she feels much better blood pressure 150/89, heart rate 92, temperature 98.5 degrees, oxygen saturation 98% on room air it is possible the patient had a migraine headache as well. However, on physical exam, patient did not have any photophobia, patient was awake alert, playing on her phone, had visitors in the room and interacting with them. Differential Diagnosis Differential Diagnoses: The differential diagnosis associated with the presentation includes ( tension headache, migraine headache, hypertensive urgency ) Admission/Observation Consideration of admission/observation: Escalation of care including admission/observation considered ( given patient's symptoms and elevated blood pressure, observation/ admission was considered) Lab Data [facility] Lab Attestation statement: I reviewed the patient's lab results. 07/01/24 00:46 07/01/24 00:46 Labs: Lab Results 07/01/24 Range/Units 00:46 WBC 12.5 H (4.8-10.8) X10*3/uL RBC 4.40 (4.20-5.50) X10*6/uL Hgb 12.8 (12.0-16.0) g/dl Hct 37.6 (37.0-47.0) % MCV 85.5 (80.0-98.0) fL MCH 29.1 (27.0-33.0) pg MCHC 34.0 (31.0-35.0) g/dl RDW 12.2 (11.0-16.0) % Plt Count 269 (160-400) X10*3/uL MPV 10.9 (9.4-12.3) fL Immature Gran % (Auto) 0.3 (0.0-0.4) % Neut % (Auto) 48.8 (45-73) % Lymph % (Auto) 41.6 H (20-40) % [place] % (Auto) 5.0 (2-11) % Eos % (Auto) 3.8 (0-4) % Baso % (Auto) 0.5 (0-2) % Lymph # (Auto) 5.2 H (1.2-4.9) X10*3/uL [place] # (Auto) 0.6 (0.1-1.2) X10*3/uL Eos # (Auto) 0.5 H (0.0-0.4) X10*3/uL Baso # (Auto) 0.1 (0.0-0.2) X10*3/uL Abs Immat Gran (auto) 0.04 H (0.00-0.03) X10*3/uL Absolute Neuts (auto) 6.1 (2.0-8.3) x10*3/uL Absolute Nucleated RBC 0.000 (0.0-0.012) X10*3/uL Nucleated RBC % (auto) 0.0 (0.0-0.2) /100WBC Smear Tech's Comments VERIFIED Sodium 136 (135-145) mmol/L Potassium 3.8 (3.3-5.1) mmol/L Chloride 109 H (96-108) mmol/L Carbon Dioxide 22 (22-29) mmol/L Anion Gap 9 L (12-20) BUN 12 (9-16) mg/dL Creatinine 0.73 (0.5-1.4) mg/dL Estim Creat Clear Calc 163.2 Estimated GFR > 60 Random Glucose 167 H (60-115) mg/dL Calcium 8.9 D (8.4-10.2) mg/dL Total Bilirubin 0.3 (0.0-1.0) mg/dL Direct Bilirubin 0.1 (0.0-0.5) mg/dL AST 34 H (5-31) U/L ALT 33 H (0-31) U/L Alkaline Phosphatase 56 (39-117) U/L Troponin I High Sens < 2.7 (<3.5-17.0) ng/L Total Protein 7.3 (6.5-8.0) g/dL Albumin 3.7 (3.5-5.0) g/dL Beta HCG, Quant < 2 mIU/mL Independent Interpretation I performed an independent interpretation of an: EKG ( my interpretation of EKG: Normal sinus rhythm, heart rate 88, no ST segment depression or elevation, nonspecific T-wave inversion in lead 3, QTC 467) and CT Scan Radiology Impression Discussion of test interpretation with radiology: I have reviewed the radiologist's reading. Radiologist Impression: Findings: No intra-axial mass, midline shift, hydrocephalus, or acute hemorrhage. No significant atrophy-like change or white matter disease. The visualized paranasal sinuses and mastoid air cells are normal. The orbits are unremarkable. There is no acute fracture. IMPRESSION: 1. No acute intracranial findings Critical Care Time Critical Care Time Critical Care Time: Yes Total Critical Care Time: 45 Attestation: I have personally provided critical care time. Time includes review of lab data, radiology results, discussion with consultants, and monitoring for potential decompensation. Intervention performed as documented. Discharge Plan Discharge Clinical Impression: Hypertensive urgency, Headache Patient Disposition: Home, Self-Care Instructions: Acute Headache (ED), Hypertensive Crisis (ED) Additional Instructions: Please follow-up with your primary care physician tomorrow. If you have any worsening or new symptoms, please return to the emergency room or call 911 Prescriptions: New lisinopril 40 mg tablet 40 mg PO DAILY Qty: 30 0RF No Action ondansetron 4 mg tablet,disintegrating 4 mg PO Q8H PRN (Reason: nausea and vomiting) Qty: 20 0RF cephalexin 500 mg capsule 500 mg PO QID 10 Days Qty: 40 0RF doxycycline hyclate 100 mg tablet 100 mg PO BID Qty: 20 0RF cefuroxime axetil 250 mg tablet 250 mg PO BID Qty: 13 0RF Print Language: Tamazight
[2024-07-01 00:51] LABS: Basophils Absolute Auto 0.1 X10*3/uL (0.0-0.2); Basophils Percent Auto 0.5 % (0-2); Eosinophils Absolute Auto 0.5 X10*3/uL (0.0-0.4); Eosinophils Percent Auto 3.8 % (0-4); Hematocrit 37.6 % (37.0-47.0); Hemoglobin 12.8 g/dl (12.0-16.0); Imm Gran Abs Auto 0.04 X10*3/uL (0.00-0.03); Imm Gran Pct Auto 0.3 % (0.0-0.4); Lymphocytes Absolute Auto 5.2 X10*3/uL (1.2-4.9); Lymphocytes Percent Auto 41.6 % (20-40); MANUAL DIFF FLAG SCAN; Mean Corpuscular Hemoglobin 29.1 pg (27.0-33.0); Mean Corpuscular Volume 85.5 fL (80.0-98.0); Mean Platelet Volume 10.9 fL (9.4-12.3); Monocytes Absolute Auto 0.6 X10*3/uL (0.1-1.2); Neutrophils Absolute Auto 6.1 x10*3/uL (2.0-8.3); Neutrophils Percent Auto 48.8 % (45-73); Platelet Count 269 X10*3/uL (160-400); Red Cell Distribution Width 12.2 % (11.0-16.0); SCAN SMEAR FLAG 1; White Blood Count 12.5 X10*3/uL (4.8-10.8)
[2024-07-01 01:01] VITALS: BP 169/97; PULSE 92; RESP 18; O2SAT 96
[2024-07-01 01:13] LABS: SLIDE REVIEW VERIFIED
[2024-07-01 01:17] LABS: Troponin-I High Sensitivity < 2.7 ng/L (<3.5-17.0)
[2024-07-01 01:21] LABS: Alanine Aminotransferase 33 U/L (0-31); Albumin Level 3.7 g/dL (3.5-5.0); Alkaline Phosphatase 56 U/L (39-117); Anion Gap 9 (12-20); Aspartate Amino Transferase 34 U/L (5-31); Bilirubin Direct 0.1 mg/dL (0.0-0.5); Bilirubin Total 0.3 mg/dL (0.0-1.0); Blood Urea Nitrogen 12 mg/dL (9-16); Calcium 8.9 mg/dL (8.4-10.2); Carbon Dioxide 22 mmol/L (22-29); Chloride 109 mmol/L (96-108); Creatinine Clr Calc Pharmacy 163.2; Estimated Glomerular Filt Rate > 60; Glucose Random 167 mg/dL (60-115); HCG Quantitative < 2 mIU/mL; Potassium 3.8 mmol/L (3.3-5.1); Sodium 136 mmol/L (135-145); Total Protein 7.3 g/dL (6.5-8.0)
[2024-07-01 02:36] VITALS: BP 152/89; PULSE 92; RESP 18; O2SAT 98
[2024-07-01] MEDS: amLODIPine Besylate 10 MG TABLET PO (02:36)
[2024-07-01] MEDS: Ketorolac Tromethamine 60 MG/2 ML VIAL IM (02:36)
[2024-07-01 03:26] VITALS: BP 159/100; PULSE 87; RESP 18; TEMP 36.7; O2SAT 98
== END 2024-07-01 03:28 | disposition home or self-care (01) ==
PROVIDERS: Emergency Provider Emergency Medicine; PCP Internal Medicine
DX: I16.0 Hypertensive urgency (principal); R51.9 Headache, unspecified; I10 Essential (primary) hypertension; R11.2 Nausea with vomiting, unspecified; Z79.899 Other long term (current) drug therapy
CPT/HCPCS: 36415; 70450; 80048; 80076; 84484; 84702; 85025; 93005; 99284; J1885

== ENCOUNTER → 2024-07-01 00:13 | Outpatient (BNV) | payer OTHER, SELFPAY | PROVIDERS: Emergency Provider Emergency Medicine; PCP Internal Medicine; Visit Provider General Practice | DX: R51.9 Headache, unspecified (principal); R03.0 Elevated blood-pressure reading, without diagnosis of hypertension | CPT/HCPCS: 70450 ==

== ENCOUNTER → 2024-07-01 00:13 | Outpatient (BNV) | payer OTHER, SELFPAY | PROVIDERS: Emergency Provider Emergency Medicine; PCP Internal Medicine; Visit Provider Internal Medicine Cardiovascular Disease | DX: I10 Essential (primary) hypertension (principal) | CPT/HCPCS: 93010 ==

== ENCOUNTER 2024-08-08 02:58 | Emergency (ER) | payer OTHER, SELFPAY ==
--- NOTE | 2024-08-08 | ECG_ITS ---
Test Reason : high bp Blood Pressure : */* mmHG Vent. Rate : 89 BPM Atrial Rate : 89 BPM P-R Int : 150 ms QRS Dur : 100 ms QT Int : 382 ms P-R-T Axes : 37 31 37 degrees QTcB Int : 464 ms Normal sinus rhythm Normal ECG When compared with ECG of 01-Jul-2024 00:37, No significant change was found Referred By: Generic ED Physician Electronically Signed By: SAMIRA SANTOS
[2024-08-08 03:01] VITALS: BP 218/116; PULSE 95; RESP 20; TEMP 36.8; O2SAT 99; BMI 43.9
[2024-08-08 03:31] LABS: Basophils Absolute Auto 0.1 X10*3/uL (0.0-0.2); Basophils Percent Auto 0.5 % (0-2); Eosinophils Absolute Auto 0.5 X10*3/uL (0.0-0.4); Eosinophils Percent Auto 3.3 % (0-4); Hematocrit 39.2 % (37.0-47.0); Hemoglobin 13.7 g/dl (12.0-16.0); Imm Gran Abs Auto 0.08 X10*3/uL (0.00-0.03); Imm Gran Pct Auto 0.5 % (0.0-0.4); Lymphocytes Absolute Auto 5.9 X10*3/uL (1.2-4.9); Lymphocytes Percent Auto 39.5 % (20-40); Mean Corpuscular HGB Conc 34.9 g/dl (31.0-35.0); Mean Corpuscular Hemoglobin 29.5 pg (27.0-33.0); Mean Corpuscular Volume 84.3 fL (80.0-98.0); Mean Platelet Volume 10.2 fL (9.4-12.3); Monocytes Absolute Auto 0.7 X10*3/uL (0.1-1.2); Monocytes Percent Auto 4.9 % (2-11); Neutrophils Absolute Auto 7.7 x10*3/uL (2.0-8.3); Neutrophils Percent Auto 51.3 % (45-73); Platelet Count 325 X10*3/uL (160-400); Red Blood Count 4.65 X10*6/uL (4.20-5.50); Red Cell Distribution Width 12.3 % (11.0-16.0); SCAN SMEAR FLAG 1
[2024-08-08 03:33] LABS: MANUAL DIFF FLAG SCAN
[2024-08-08 03:48] LABS: SLIDE REVIEW VERIFIED
[2024-08-08 03:55] LABS: Alanine Aminotransferase 30 U/L (0-31); Albumin Level 4.1 g/dL (3.5-5.0); Alkaline Phosphatase 58 U/L (39-117); Anion Gap 14 (12-20); Aspartate Amino Transferase 28 U/L (5-31); Bilirubin Total 0.3 mg/dL (0.0-1.0); Blood Urea Nitrogen 13 mg/dL (9-16); Calcium 9.2 mg/dL (8.4-10.2); Carbon Dioxide 19 mmol/L (22-29); Chloride 110 mmol/L (96-108); Creatinine Clr Calc Pharmacy 165.2; Estimated Glomerular Filt Rate > 60; Glucose Random 146 mg/dL (60-115); Potassium 3.9 mmol/L (3.3-5.1); Sodium 139 mmol/L (135-145); Total Protein 8.2 g/dL (6.5-8.0)
[2024-08-08 03:58] LABS: Troponin-I High Sensitivity < 2.7 ng/L (<3.5-17.0)
[2024-08-08] MEDS: Ibuprofen 400 MG TABLET PO (04:09)
[2024-08-08] MEDS: Morphine Sulfate Immed Release 15 MG TABLET PO (04:09)
--- NOTE | 2024-08-08 04:12 | PC.NURSE ---
pt resting in bed, medicated per aug.
[2024-08-08 04:28] VITALS: BP 220/124; PULSE 94; RESP 16; TEMP 36.7; O2SAT 99
[2024-08-08 06:18] VITALS: BP 184/109; PULSE 95; RESP 20; TEMP 36.9; O2SAT 98
--- NOTE | 2024-08-08 06:22 | PC.NURSE ---
notified provider of bp, provider aware
--- NOTE | 2024-08-08 07:20 | ED.DENTAL ---
HPI - Dental/Oral General Chief complaint: Dental/Oral Stated complaint: dental pain Time Seen by Provider: 08/08/24 07:14 Source: patient Mode of arrival: ambulatory Limitations: no limitations History of Present Illness ED Provider: DR. Curiel HPI Narrative: 28-year-old female came in for evaluation of dental pain for a week, patient is awaiting the dentist to manage her dental issue waiting for better control of her chronic blood pressure that has been elevated lately and contraindicate doing any dental procedure patient is taking lisinopril 40 mg and labetalol 100 mg with no improvement of her blood pressure patient otherwise has no headache, no blurry vision, no CP, no abdominal pain. No fever, no chills, no facial swelling, speaks in full sentence, no difficulty breathing. Related Data Previous Rx's ?Medication ?Instructions ?Recorded ondansetron 4 mg disintegrating 4 mg PO Q8H PRN nausea and 06/07/23 tablet vomiting #20 tabs cefuroxime axetil 250 mg tablet 250 mg PO BID #13 tabs 01/09/24 cephalexin 500 mg capsule 500 mg PO QID 10 days #40 caps 02/17/24 doxycycline hyclate 100 mg tablet 100 mg PO BID #20 tabs 02/17/24 lisinopril 40 mg tablet 40 mg PO DAILY #30 tabs 07/01/24 amlodipine 2.5 mg tablet 2.5 mg PO DAILY #20 tabs 08/08/24 amoxicillin 500 mg tablet 500 mg PO BID #14 tabs 08/08/24 oxycodone 5 mg tablet 5 mg PO BID PRN pain #10 tabs 08/08/24 Allergies Allergy/AdvReac Type Severity Reaction Status Date / Time clonazepam [From Klonopin] AdvReac Anaphylaxis Verified 08/08/24 03:05 Review of Systems Review of Systems: All other systems are reviewed and are negative Constitutional: Reports as per HPI and Reports no additional constitutional complaints Eyes: Reports as per HPI and Reports no additional eye complaints Reports system reviewed and no additional complaints, except as documented Cardiovascular: Reports as per HPI and Reports no additional cardiovascular complaints Respiratory: Reports as per HPI and Reports no additional respiratory complaints Gastrointestinal: Reports as per HPI and Reports no additional gastrointestinal complaints Genitourinary: Reports no additional female genitourinary complaints Musculoskeletal: Reports no additional musculoskeletal complaints Skin/Breast: Reports system reviewed and no additional complaints, except as docu Psychiatric: Reports no additional psychiatric complaints Endocrine: Reports no additional endocrine complaints Hematologic/Lymphatic: Reports no additional hematologic/lymphatic complaints Allergic/Immunologic: Reports no additional allergic/immunologic complaints Reports system reviewed and no additional complaints, except as documented and Reports Abnormal speech present [facility] Social History Social History Alcohol intake: current Alcohol intake frequency: does not drink Alcohol type: wine Smoked in Last 30 Days: No Use of substances other than those prescribed or required for medical reasons: No Advance Directives: No Advance Directives Information Provided: Yes Physical Exam Vital Signs: Vital Signs: Last Vital Signs Temp 98.4 F 08/08/24 06:18 Pulse 95 08/08/24 06:18 Resp 20 08/08/24 06:18 BP 184/109 H 08/08/24 06:18 Pulse Ox 98 08/08/24 06:18 O2 Del Method Room Air 08/08/24 06:18 BMI result Body Mass Index 43.9 Vital signs have been reviewed and appear to be correct. Blood pressure elevated. Heart rate normal. Respiratory rate normal. Temperature normal. Oxygen saturation normal. Appearance: Alert. Oriented X3. No acute distress. Head: Normal external exam. Normocephalic. Atraumatic. No Lane signs noted. No raccoon eyes noted Dental exam: No gum tenderness, no fluctuation, no abscess is appreciated, tenderness over the 3rd lower left molar tooth. Eyes: PERRLA. EOMI. Conjunctiva and sclera normal. Eyelids normal. ENT: TM's Normal. Pharynx normal. Uvula midline. Moist mucous membranes. No trismus noted. No drooling noted. No muffled voice noted. Neck: Normal inspection. Neck supple. FROM. No adenopathy. Thyroid Normal. No meningeal signs. No neck mass noted. CVS: Normal heart rate and rhythm. Heart sound normal. No murmurs noted. Pulses normal throughout. Respiratory: No respiratory distress. Painless inspiration. Breath sounds normal. No wheezes/rales/rhonchi noted. Chest nontender. No accessory muscle usage noted or decreased air movement noted. Abdomen: Soft and nontender. Bowel sounds normal in all 4 quadrants. No distention noted. No organomegaly noted. No visible injury noted. Back: No CVA tenderness. Full range of motion noted. Skin: Skin warm and dry. Normal skin color. Normal skin turgor. No rashes/lesions/lacerations noted. Extremities: No lower extremity edema. Extremities exhibit normal range of motion. Extremities nontender. Neuro: Oriented X 3. Cranial nerve exam: II-XII are grossly intact No motor deficit. No sensory deficit. Reflexes normal. Course Reevaluation(s) Reevaluation #1: Dental pain, no dental procedure by the dentist until blood pressure is under better control, PCP added labetalol for lisinopril to control blood pressure patient still hypertensive could be secondary to the dental pain will add low dose of amlodipine to patient's medication, pain medication, start on amoxicillin for dental infection, physical exam reveals no dental abscess. Leukocytosis which is chronic slightly above baseline secondary to dental infection without dental abscess. Time: 07:25 Medications Administered Discontinued Medications Generic Name Dose Route Start Last Admin Trade Name Freq PRN Reason Stop Dose Admin Ibuprofen 400 mg 08/08/24 04:03 08/08/24 04:09 Ibuprofen 400 Mg Tablet PO 08/08/24 04:04 400 mg ONCE STA Administration Morphine Sulfate 15 mg 08/08/24 04:03 08/08/24 04:09 Morphine Sulfate Immed Release 15 Mg Tablet PO 08/08/24 04:04 15 mg ONCE ONE Administration Medical Decision Making Differential Diagnosis Differential Diagnoses: The differential diagnosis associated with the presentation includes (Essential hypertension, hypertension emergency, hypertension urgency, dental abscess, dental infection.) Admission/Observation Consideration of admission/observation: Escalation of care including admission/observation considered Lab Data MDM Lab Attestation statement: I reviewed the patient's lab results. 08/08/24 03:26 08/08/24 03:26 Labs: Lab Results 08/08/24 Range/Units 03:26 WBC 15.0 H (4.8-10.8) X10*3/uL RBC 4.65 (4.20-5.50) X10*6/uL Hgb 13.7 (12.0-16.0) g/dl Hct 39.2 (37.0-47.0) % MCV 84.3 (80.0-98.0) fL MCH 29.5 (27.0-33.0) pg MCHC 34.9 (31.0-35.0) g/dl RDW 12.3 (11.0-16.0) % Plt Count 325 (160-400) X10*3/uL MPV 10.2 (9.4-12.3) fL Immature Gran % (Auto) 0.5 H (0.0-0.4) % Neut % (Auto) 51.3 (45-73) % Lymph % (Auto) 39.5 (20-40) % Patrick % (Auto) 4.9 (2-11) % Eos % (Auto) 3.3 (0-4) % Baso % (Auto) 0.5 (0-2) % Lymph # (Auto) 5.9 H (1.2-4.9) X10*3/uL Patrick # (Auto) 0.7 (0.1-1.2) X10*3/uL Eos # (Auto) 0.5 H (0.0-0.4) X10*3/uL Baso # (Auto) 0.1 (0.0-0.2) X10*3/uL Abs Immat Gran (auto) 0.08 H (0.00-0.03) X10*3/uL Absolute Neuts (auto) 7.7 (2.0-8.3) x10*3/uL Absolute Nucleated RBC 0.000 (0.0-0.012) X10*3/uL Nucleated RBC % (auto) 0.0 (0.0-0.2) /100WBC Smear Tech's Comments VERIFIED Sodium 139 (135-145) mmol/L Potassium 3.9 (3.3-5.1) mmol/L Chloride 110 H (96-108) mmol/L Carbon Dioxide 19 L (22-29) mmol/L Anion Gap 14 (12-20) BUN 13 (9-16) mg/dL Creatinine 0.72 (0.5-1.4) mg/dL Estim Creat Clear Calc 165.2 Estimated GFR > 60 Random Glucose 146 H (60-115) mg/dL Calcium 9.2 (8.4-10.2) mg/dL Total Bilirubin 0.3 (0.0-1.0) mg/dL AST 28 (5-31) U/L ALT 30 (0-31) U/L Alkaline Phosphatase 58 (39-117) U/L Troponin I High Sens < 2.7 (<3.5-17.0) ng/L Total Protein 8.2 H (6.5-8.0) g/dL Albumin 4.1 (3.5-5.0) g/dL Discharge Plan Discharge Clinical Impression: Toothache, Essential hypertension Patient Disposition: Home, Self-Care Additional Instructions: Follow-up with your PCP for further management of high blood pressure. Contact your primary dentist for further management of your dental pain. Prescriptions: New amoxicillin 500 mg tablet 500 mg PO BID Qty: 14 0RF oxycodone 5 mg tablet 5 mg PO BID PRN (Reason: pain) Qty: 10 0RF Rx Instructions: Partial Fill upon patient request. amlodipine 2.5 mg tablet 2.5 mg PO DAILY Qty: 20 0RF No Action ondansetron 4 mg tablet,disintegrating 4 mg PO Q8H PRN (Reason: nausea and vomiting) Qty: 20 0RF cephalexin 500 mg capsule 500 mg PO QID 10 Days Qty: 40 0RF doxycycline hyclate 100 mg tablet 100 mg PO BID Qty: 20 0RF lisinopril 40 mg tablet 40 mg PO DAILY Qty: 30 0RF cefuroxime axetil 250 mg tablet 250 mg PO BID Qty: 13 0RF Print Language: Telugu
[2024-08-08 07:26] VITALS: BP 184/109
[2024-08-08] MEDS: amLODIPine Besylate 2.5 MG TABLET PO (07:26)
[2024-08-08] MEDS: Ibuprofen 600 MG TABLET PO (07:27)
[2024-08-08] MEDS: Amoxicillin 500 MG CAPSULE PO (07:27)
[2024-08-08] MEDS: oxyCODONE HCl Immed Release 5 MG TABLET PO (07:27)
[2024-08-08 08:37] VITALS: BP 203/139; PULSE 97; RESP 18; TEMP 36.9; O2SAT 97
--- NOTE | 2024-08-08 08:38 | PC.NURSE ---
MD aware of pt high BP. Ok with d/c home with BP meds.
[2024-08-08 08:39] VITALS: BP 203/139; PULSE 97; RESP 18; TEMP 36.9; O2SAT 98
== END 2024-08-08 08:39 | disposition home or self-care (01) ==
PROVIDERS: Emergency Provider Emergency Medicine
DX: K08.89 Other specified disorders of teeth and supporting structures (principal); I10 Essential (primary) hypertension; Z79.899 Other long term (current) drug therapy
CPT/HCPCS: 36415; 80053; 84484; 85025; 93005; 99283; 99285

== ENCOUNTER → 2024-08-08 03:19 | Outpatient (BNV) | payer OTHER, SELFPAY | PROVIDERS: Emergency Provider Emergency Medicine; Visit Provider Internal Medicine | DX: I10 Essential (primary) hypertension (principal) | CPT/HCPCS: 93010 ==